=== PATIENT | male | born 1970 | race Caucasian/White ===

== ENCOUNTER 2016-07-13 16:06 | Emergency (ER) | payer MEDICARE, OTHER ==
[2016-07-13 17:09] VITALS: BP 120/85; PULSE 65; RESP 18; TEMP 98.2
--- NOTE | 2016-07-13 17:44 | ED ---
General Adult HPI - General Chief complaint: Urogenital Stated complaint: Male GI Time Seen by Provider: 07/13/16 17:20 Source: patient, RN notes reviewed Mode of arrival: ambulatory Limitations: no limitations - History of Present Illness Initial comments: 46 yo male presents to the ER with cc of blood per penis. Patient himself is due to the inability to fully empty his bladder from a head injury many years ago. Patient states that he had a fourths full calf a few days ago he had bright red blood following this and he slowly had some blood from the urethra that seems to be improving. They were concerned due to the bleeding so they thought that they should be evaluated. He denies any pain or discomfort with this. They state that he has not had a forceful Sense. They were just concerned due to the bleeding to the Patient be evaluated. Patient denies any recent fever, chills, shortness of breath, chest pain, back pain, abdominal pain , nausea vomiting, numbness or tingling, dysuria or hematuria, constipation or diarrhea, headaches or visual changes, or any other current symptoms. - Related Data Home Medications Medication Instructions Recorded Confirmed No Known Home Medications [No 07/13/16 07/13/16 Known Home Medications] Allergies Allergy/AdvReac Type Severity Reaction Status Date / Time paroxetine [From Paxil] Allergy Rash/Hives Verified 07/13/16 17:44 Review of Systems ROS Statement: Those systems with pertinent positive or pertinent negative responses have been documented in the HPI. ROS Other: All systems not noted in ROS Statement are negative. Past Medical History Past Medical History: No Reported History Additional Past Medical History / Comment(s): TBI, trache History of Any Multi-Drug Resistant Organisms: None Reported Past Surgical History: No Surgical Hx Reported Additional Past Surgical History / Comment(s): PEG tube Past Psychological History: Anxiety, Depression Smoking Status: Current every day smoker Past Alcohol Use History: None Reported Past Drug Use History: Marijuana General Exam Limitations: no limitations General appearance: alert, in no apparent distress Head exam: Present: atraumatic, normocephalic, normal inspection Neck exam: Present: normal inspection. Absent: tenderness, meningismus, lymphadenopathy Respiratory exam: Present: normal lung sounds bilaterally. Absent: respiratory distress, wheezes, rales, rhonchi, stridor Cardiovascular Exam: Present: regular rate, normal rhythm, normal heart sounds. Absent: systolic murmur, diastolic murmur, rubs, gallop, clicks exam: Present: normal inspection, vertical testicular lie, circumcision. Absent: testicular tenderness, urethral discharge, scrotal swelling Extremities exam: Present: normal inspection, full ROM, normal capillary refill. Absent: tenderness, pedal edema, joint swelling, calf tenderness Back exam: Present: normal inspection Neurological exam: Present: alert, oriented X3 Psychiatric exam: Present: normal affect, normal mood Skin exam: Present: warm, dry, intact, normal color. Absent: rash Course Vital Signs 07/13/16 17:03 Temperature 98.2 F Pulse Rate 65 Respiratory 18 Rate Blood Pressure 120/85 O2 Sat by Pulse 98 Oximetry Medical Decision Making - Medical Decision Making 46-year-old male presents for blood from penis. This time no blood visible on exam. Urinalysis was reviewed we did send for culture. He recently was off antibiotics. We discussed follow-up on the culture for continued care. This time we discussed most likely patient did have a skin injury to the urethra. We did discuss with assigned to continue to watch. We discussed follow-up and return parameters. Patient stated that he understood as well as family. Admitted plan all questions have been answered. They will be discharged. - Lab Data Lab Results 07/13/16 Range/Units 16:35 Urine Color Light Yellow Urine Appearance Clear (Clear) Urine pH 6.5 (5.0-8.0) Ur Specific [place] 1.002 (1.001-1.035) Urine Protein Negative (Negative) Urine Glucose (UA) Negative (Negative) Urine Ketones Negative (Negative) Urine Blood Moderate H (Negative) Urine Nitrite Negative (Negative) Urine Bilirubin Negative (Negative) Urine Urobilinogen <2.0 (<2.0) mg/dL Ur Leukocyte Esterase Trace H (Negative) Urine RBC 1 (0-5) /hpf Urine WBC 4 (0-5) /hpf Urine Bacteria Rare H (None) /hpf Urine Mucus Rare H (None) /hpf Disposition Clinical Impression: Urethral trauma, Hematuria Disposition: HOME SELF-CARE Condition: Stable Instructions: Hematuria (ED) Additional Instructions: Please use medication as discussed. Please follow up with family doctor if symptoms have not improved over the next two days. Please return to the emergency room if your symptoms increase or worsen or for any other concerns. Referrals: Regla Doty MD [Primary Care Provider] - 1-2 days Time of Disposition: 18:19
[2016-07-13 17:56] LABS: Appearance,Urine Clear (Clear); Bacteria,Urine Rare /hpf; Bilirubin,Urine Negative (Negative); Glucose,Urine (UA) Negative (Negative); Ketones,Urine Negative (Negative); Leukocyte Esterase,Urine Trace (Negative); Mucus,Urine Rare /hpf; Nitrite,Urine Negative (Negative); PH, Urine 6.5 (5.0-8.0); Particle Count 847; Protein,Urine Negative (Negative); RBC,Urine 1 /hpf (0-5); Specific Gravity,Urine 1.002 (1.001-1.035); UA Billing (MACRO vs. MICRO) MICRO; Urobilinogen,Urine <2.0 mg/dL (<2.0); WBC,Urine 4 /hpf (0-5)
== END 2016-07-13 18:39 | disposition home or self-care (01) ==
LOC: EC 16:06
DX: S37.30XA Unspecified injury of urethra, initial encounter (principal); R31.9 Hematuria, unspecified; F17.200 Nicotine dependence, unspecified, uncomplicated; Z88.8 Allergy status to other drugs, medicaments and biological substances; X58.XXXA Exposure to other specified factors, initial encounter
CPT/HCPCS: 81001; 87086; 99283